=== PATIENT | male | born 1980 | race Caucasian/White ===

== ENCOUNTER 2016-08-27 13:04 | Emergency (ER) | payer OTHER ==
[~2016-08-27] VITALS: Ht 195.6 cm; Wt 95.3 kg
[2016-08-27 13:06] VITALS: BP 152/85
--- NOTE | 2016-08-27 14:08 | ED HAND/WRIST INJURY COMPLAINT ---
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 yes Occurred: just prior to arrival Duration: hour(s):, constant, continues in ED Timing: single episode today Injury Environment: work Severity: mild, moderate Pain/Injury Location: Left: 2nd finger. Method of Injury: laceration HPI: 35-year-old male comes into emergency room with laceration to left index finger. 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 Tetanus shot update. Mild throbbing pain. Continuous. Nonradiating. Denies any other associated symptoms. Some associated bleeding. (NIDA RIZVI) Past History Travel History Traveled to [place] past 21 day No Medical History Any Pertinent Medical History? 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 No (NIDA RIZVI) Review of Systems Review of Systems Constitutional: Reports: no symptoms. EENTM: Reports: no symptoms. Respiratory: Reports: no symptoms. Cardiovascular: Reports: no symptoms. GI: Reports: no symptoms. Genitourinary: Reports: no symptoms. Musculoskeletal: Reports: see HPI. Skin: Reports: see HPI. Neurological/Psychological: Reports: no symptoms. Hematologic/Endocrine: Reports: no symptoms. Immunologic/Allergic: Reports: no symptoms. All Other Systems: Reviewed and Negative (NIDA RIZVI) Physical Exam Physical Exam General Appearance: well developed/nourished, mild distress Head: atraumatic Eyes: Bilateral: normal appearance. Ears, Nose, Throat: normal ENT inspection, hearing grossly normal Neck: normal inspection Cardiovascular/Respiratory: no respiratory distress Back: normal inspection Hand Left: 2nd finger (1.5 cm laceration dorsal) Hand Right: normal inspection Neurologic/Tendon: normal sensation, normal motor functions, normal tendon functions, responds to pain, no evidence tendon injury, no pulse deficit Skin: intact, normal color, warm/dry Lymphatic: no anterior cervical haris (NIDA RIZVI) Progress Differential Diagnosis: contusion, fracture, gout, septic arthritis, sprain, tenosynovitis, tendon laceration, soft tissue foreign body Plan of Care: Patient understands and agrees with plan of care. (NIDA RIZVI) Departure Departure Disposition: HOME OR SELF CARE Condition: Stable Clinical Impression Primary Impression: Finger laceration Referrals: PATIENT HAS NO PRIMARY CARE DR (PCP/Family) Additional Instructions: Return in 7-10 days for suture removal. Keep covered with bacitracin and dry dressing. Return if any other concerns worsening symptoms. Please go over all results of today's visit with your primary care doctor. Contact your primary care doctor to let them know you were here in the emergency room. There may be nonspecific findings which may not be related to your visit today here in the emergency room but may require further evaluation and chronic monitoring by your primary care doctor. If you had a laceration today the chance of foreign body always remains. You should follow-up with your primary care doctor for recheck in 3-5 days for a wound check. If you had an x-ray done there is a chance that a fracture could have been missed on initial read and you should follow-up with your primary care doctor for repeat x-rays if symptoms persist. If your blood pressure was elevated here in the emergency room please have rechecked by her primary care doctor within the next 48 hours by your primary care doctor. If you were prescribed a narcotic here in the emergency room or any type of controlled substances you're not allowed to drive while taking this medication or operate any type of heavy machinery. Narcotics can make you feel lightheaded dizziness nausea and can cause constipation. You may need to pear picker a stool softener. Thank you for choosing [facility] emergency room. Please return to the emergency room immediately if you have any other concerns worsening of symptoms. 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 I have also reviewed all the pertinent lab results and diagnostic results. I agree with the findings and the plan of care as documented in the PA's/GRINDER OPERATOR EXTERNAL TOOL's documentation. [X] I have reviewed the ED Record and agree with the PA's/GRINDER OPERATOR EXTERNAL TOOL's documentation. [] Additions or exceptions (if any) to the PAs/GRINDER OPERATOR EXTERNAL TOOL's note and plan are summarized below: [] (BELEN SMITH,RONI) Procedures Laceration/Wound Repair Progress: 1.5 cm laceration, irrigated with peroxide and saline, 5. 0 nylon use, 3 sutures placed, bacitracin and dry sterile dressing placed, finger splint placed, sterile technique, patient tolerated procedure well, performed by PA student with my supervision (NIDA RIZVI)
== END 2016-08-27 14:23 ==
LOC: ERH 13:04
DX: S61.211A Laceration without foreign body of left index finger without damage to nail, initial encounter (principal); W31.9XXA Contact with unspecified machinery, initial encounter; Y92.9 Unspecified place or not applicable; Y93.9 Activity, unspecified